=== PATIENT | male | born 2000 ===

== ENCOUNTER 2021-11-28 20:15 | Emergency (ER) | payer OTHER ==
[2021-11-28] MEDS ORDERED: Ondansetron 4 MG/2 ML SDV IVPUSH ONE (20:23)
[2021-11-28] MEDS ORDERED: Diphtheria,Pertussis(Acell),Tetanus Vaccine 0.5 ML Syringe IM ONE (20:24)
[2021-11-28] MEDS ORDERED: ceFAZolin 2 GM in Premix Bag 1 BAG IV ONE (20:24)
[2021-11-28] MEDS ORDERED: Morphine 2 MG/ML SYRINGE IVPUSH ONE (20:31)
[2021-11-28] MEDS ORDERED: LORazepam 2 MG/ML SDV IVPUSH STA (20:40)
[2021-11-28] MEDS: Sodium Chloride 0.9% 2.5 ML Syringe FLUSH PRN ×2 (20:41→20:53)
[2021-11-28] MEDS: Sodium Chloride 0.9% 10 ML Syringe FLUSH PRN ×2 (20:41→20:53)
[2021-11-28] MEDS ORDERED: LORazepam 2 MG/ML SDV IVPUSH ONE (20:53)
[2021-11-28] MEDS ORDERED: Morphine 4 MG/ML VIAL IVPUSH ONE (20:53)
[2021-11-28] MEDS ORDERED: Morphine 4 MG/ML VIAL ONE (20:54)
[2021-11-28] MEDS ORDERED: Midazolam 1 MG/ML 2 ML SDV ONE (21:01)
[2021-11-28] MEDS: LORazepam 2 MG/ML SDV ONE (21:14)
[2021-11-28 21:24] LABS: CARBON DIOXIDE,CO2 22.5 mmol/L (21.0-32.0); POTASSIUM,K 3.6 mmol/L (3.5-5.1)
[2021-11-29] MEDS: LORazepam 2 MG/ML SDV ONE (00:40)
== END 2021-11-28 21:09 ==
LOC: MW.ED 20:15
DX: S72.302B Unspecified fracture of shaft of left femur, initial encounter for open fracture type I or II (principal); S82.201B Unspecified fracture of shaft of right tibia, initial encounter for open fracture type I or II; S82.002A Unspecified fracture of left patella, initial encounter for closed fracture; S00.83XA Contusion of other part of head, initial encounter; Z23 Encounter for immunization; Z20.822 Contact with and (suspected) exposure to COVID-19; V89.2XXA Person injured in unspecified motor-vehicle accident, traffic, initial encounter; Y92.410 Unspecified street and highway as the place of occurrence of the external cause
CPT/HCPCS: 36415; 71045; 72170; 73130; 73552; 73562; 73590; 80053; 80307; 85025; 87635; 90471; 90715; 96374; 96375; 99285; J0690; J2060; J2270; J2405; J3490; U0002